=== PATIENT | female | born 1990 | race Caucasian/White ===

== ENCOUNTER 2022-02-25 16:37 | Outpatient (REF) | payer BC, SELFPAY ==
[2022-02-25 17:04] LABS: Calculated LDL 114 mg/dL (<100); Cholesterol 197 mg/dL (<200); HDL Cholesterol 55 mg/dL (40-60); Triglyceride 141 mg/dL (<150)
== END 2022-02-25 16:38 | disposition home or self-care (01) ==
LOC: NCHCN 16:37
PROVIDERS: PCP Physician Assistant; Visit Provider Physician Assistant
DX: Z13.220 Encounter for screening for lipoid disorders (principal)
CPT/HCPCS: 80061

== ENCOUNTER 2022-07-28 17:17 | Outpatient (REF) | payer BC, SELFPAY ==
--- NOTE | 2022-07-28 16:45 | PAPFT_PTH ---
PATIENT: Jayne Keyes LOC: [facility] U#:[id number] AGE/SX: 32/F ROOM: RE07/28/[address]: Santiago Cadena : 1990 BED: DIS: 07/28/2022 SPEC #: [id number] RECD: 07/29/22 13:01 STATUS: BHARTI REYang #: [id number] FRANTZ: 07/28/22 16:[address]: Santiago Cadena DEPT: [facility] Cytology RECD BY: Tiffanie Rutherford Tissues: 1 - CX/ENDOCX FOR PAP SMEARS Procedures: PAP THIN PREP/UVM Screening Comments: [id number] (UNSATISFACTORY FOR EVALUATION)
== END 2022-07-28 17:18 | disposition home or self-care (01) ==
LOC: NCHCN 17:17
PROVIDERS: PCP Physician Assistant; Visit Provider Physician Assistant
DX: Z12.4 Encounter for screening for malignant neoplasm of cervix (principal); R87.615 Unsatisfactory cytologic smear of cervix; Z00.00 Encounter for general adult medical examination without abnormal findings
CPT/HCPCS: 88142

== ENCOUNTER 2022-11-03 17:13 | Outpatient (REF) | payer BC, SELFPAY ==
[2022-11-03 18:25] LABS: HCT 36.9 % (36.0-46.0); HGB 12.3 g/dL (11.2-15.7); MCH 29.9 pg (27.0-33.0); MCHC 33.3 % (32.0-36.0); MCV 90 fL (80-95); Platelet Count 248 10^3/uL (130-400); RBC 4.12 10^6/uL (3.93-5.22); RDW 12.5 % (11.7-14.6); RDW-SD 41.4 fL; WBC 7.73 10^3/uL (4.4-10.8)
[2022-11-03 19:06] LABS: ALT 31 U/L (14-59); AST 19 U/L (15-37); Albumin 4.1 g/dL (3.4-5.0); Alkaline Phosphatase 65 U/L (46-116); Anion Gap 11.2 mmol/L (3-11); BUN 17 mg/dL (7-18); Bilirubin, Total 0.2 mg/dL (0.2-1.0); CO2 21.8 mmol/L (21.0-32.0); CREATININE 1.1 mg/dL (0.55-1.02); Calcium 9.1 mg/dL (8.5-10.1); Chloride 106 mmol/L (98-107); Estimated GFR 68.89 (mL/min/1.73m2); Glucose 98 mg/dL (74-106); Potassium 3.9 mmol/L (3.5-5.1); Sodium 139 mmol/L (136-145); Total Protein 7.5 g/dL (6.4-8.2)
== END 2022-11-03 17:14 | disposition home or self-care (01) ==
LOC: NCHCN 17:13
PROVIDERS: PCP Physician Assistant; Visit Provider Physician Assistant
DX: F10.20 Alcohol dependence, uncomplicated (principal)
CPT/HCPCS: 80053; 85027

== ENCOUNTER 2022-11-17 12:05 | Outpatient (REF) | payer BC, SELFPAY ==
--- NOTE | 2022-11-17 11:30 | PAPFT_PTH ---
PATIENT: Jayne Keyes LOC: [facility] U#:[id number] AGE/SX: 32/F ROOM: RE11/17/[address]: Maddy Harvey NP : 1990 BED: DIS: 11/17/2022 SPEC #: [id number] RECD: 11/17/22 13:08 STATUS: BHARTI REYang #: [id number] FRANTZ: 11/17/22 11:[address]: Maddy Harvey NP DEPT: [facility] Cytology RECD BY: Tiffanie Rutherford ENTERED: 11/17/22 13:08 SP TYPE: PAPFT OTHR DR: Santiago Cadena Tissues: 1 - CX/ENDOCX FOR PAP SMEARS Procedures: PAP THIN PREP/UVM Screening HPV DNA PROBE Comments: [id number]
== END 2022-11-17 12:06 | disposition home or self-care (01) ==
LOC: LBN 12:05
PROVIDERS: PCP Physician Assistant; Visit Provider Nurse Practitioner Women's Health
DX: Z12.4 Encounter for screening for malignant neoplasm of cervix (principal); Z11.51 Encounter for screening for human papillomavirus (HPV)
CPT/HCPCS: 88142; 87624

== ENCOUNTER 2023-05-27 12:50 | Outpatient (REF) | payer BC, SELFPAY ==
[2023-05-27 15:55] LABS: FREE T4 0.74 ng/dL (0.76-1.46); TSH 1.57 uIU/mL (0.36-3.74)
== END 2023-05-27 12:51 | disposition home or self-care (01) ==
LOC: NCHCN 12:50
PROVIDERS: PCP Physician Assistant; Visit Provider Physician Assistant
DX: R53.83 Other fatigue (principal)
CPT/HCPCS: 84439; 84443

== ENCOUNTER 2023-08-03 12:48 | Emergency (ER) | payer BC, SELFPAY ==
[2023-08-03 12:57] VITALS: BP 150/91; PULSE 76; RESP 16; TEMP 37; O2SAT 98
--- NOTE | 2023-08-03 13:30 | DI.CT_ITS ---
Exam(s) CT HEAD CERVICAL SPINE WO EXAM: CT HEAD CERVICAL SPINE WO CLINICAL HISTORY: midline c2 c spine pain. TECHNIQUE: Imaging Protocol: Axial computed tomography images with coronal and sagittal reformatted images were created and reviewed COMPARISON: No exams were available for comparison FINDINGS: CT Head: Ventricles and Extra axial spaces: Normal in size and morphology for the patient's age. Hemorrhage: None. Cerebral parenchyma: No mass effect. No evidence of an acute territorial infarct. There is a round lucency seen in the left basal ganglia which may reflect remote injury. Midline shift: None. Brainstem/Cerebellum: Normal. Calvarium: Normal. Visualized Paranasal sinuses/Mastoids: There is a mucous retention cyst in the right maxillary sinus. The remaining visualized paranasal sinuses and mastoid air cells are clear. Soft Tissues: Unremarkable. CT Cervical Spine: Bones: No acute fracture or subluxation. Soft Tissues: Unremarkable. Lung Apices: Clear. IMPRESSION: 1. No acute intracranial process. 2. No acute fracture or subluxation in the cervical spine. RADIATION DOSE DELIVERED: 1,575.17mGy.cm Total DLP DATA REPOSITORY: All CT scans at this facility are submitted to the National Radiology Data Registry (NRDR) Dose Index Registry (DIR) with the [employer] (ACR). RADIATION OPTIMIZATION: All CT scans at this facility use at least one of these dose optimization te chniques: automated exposure control; mA and/or kV adjustment per patient size (includes targeted exa ms where dose is matched to clinical indication); or iterative reconstruction.
[2023-08-03] MEDS: Acetaminophen 500 MG TAB 1000 MG PO (15:28)
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
== END 2023-08-03 16:31 | disposition home or self-care (01) ==
PROVIDERS: Emergency Provider Student in an Organized Health Care Education/Training Program; PCP Physician Assistant
DX: S13.4XXA Sprain of ligaments of cervical spine, initial encounter; W50.0XXA Accidental hit or strike by another person, initial encounter; Y92.838 Other recreation area as the place of occurrence of the external cause
CPT/HCPCS: 81025; 99284; 70450; 72125

== ENCOUNTER 2023-08-21 14:51 | Outpatient (REF) | payer BC, SELFPAY ==
[2023-08-21 15:27] LABS: FREE T4 0.84 ng/dL (0.76-1.46); TSH 1.71 uIU/Ml (0.36-3.74)
== END 2023-08-21 14:52 | disposition home or self-care (01) ==
LOC: NCHCN 14:51
PROVIDERS: PCP Physician Assistant; Visit Provider Physician Assistant
DX: E03.9 Hypothyroidism, unspecified (principal)
CPT/HCPCS: 84439; 84443